=== PATIENT | male | born 1930 | race Caucasian/White ===

== ENCOUNTER 2018-10-29 14:49 | Emergency (ER) | payer MEDICARE ==
[~2018-10-29] VITALS: Ht 177.8 cm; Wt 90.7 kg
[~2018-10-29 14:49] MED LIST: ASPI81EC PO; EZET10-20 PO; INSULANI SC; METO25ER PO; OMEP20ER PO; ROSI2 PO; ROSI4 PO
[2018-10-29] MEDS ORDERED: Ultram50 MG PO (16:42)
[2018-10-29] MEDS ORDERED: WALKER (16:43)
== END 2018-10-29 16:59 | disposition home or self-care (01) ==
LOC: ER 14:49
DX: S22.089A Unspecified fracture of T11-T12 vertebra, initial encounter for closed fracture (principal); E11.9 Type 2 diabetes mellitus without complications; Z79.4 Long term (current) use of insulin; Z79.82 Long term (current) use of aspirin; Z79.899 Other long term (current) drug therapy; W19.XXXA Unspecified fall, initial encounter; Y92.89 Other specified places as the place of occurrence of the external cause
CPT/HCPCS: 36415; 72070; 72100; 72125; 73562-LT; 96374; 99284-25; J3010; L0160